=== PATIENT | female | born 1935 | race Caucasian/White ===

== ENCOUNTER 2021-08-11 11:00 | Emergency (ER) | payer MEDICARE, BC ==
[~2021-08-11] VITALS: Ht 167.6 cm; Wt 94.8 kg
[~2021-08-11 11:00] MED LIST: WARF5TAB PO; WARF7.5T23 PO
--- NOTE | 2021-08-11 11:36 | NUR ---
DR FRANCISCO AT BEDSIDE FOR EVALUATION.
--- NOTE | 2021-08-11 13:16 | NUR ---
Patient discharged to home in stable condition. Written and verbal after care instructions given. Patient verbalizes understanding of instructions. Stressed follow up or return to ER for worsening s/s.
[2021-08-11 13:17] VITALS: BP 133/67
== END 2021-08-11 13:17 | disposition home or self-care (01) ==
LOC: ER 11:05
DX: M79.89 Other specified soft tissue disorders (principal); R60.0 Localized edema; I48.91 Unspecified atrial fibrillation; Z79.01 Long term (current) use of anticoagulants; J45.909 Unspecified asthma, uncomplicated; R03.0 Elevated blood-pressure reading, without diagnosis of hypertension
CPT/HCPCS: A4663